=== PATIENT | male | born 1960 | race Caucasian/White ===

== ENCOUNTER 2017-05-02 10:19 | Emergency (ER) | payer SELFPAY ==
[~2017-05-02] VITALS: Ht 175.3 cm; Wt 111.1 kg
[2017-05-02 10:26] VITALS: Ht 175.3 cm; Wt 111.1 kg
[2017-05-02 12:58] VITALS: BP 134/83
== END 2017-05-02 12:58 | disposition home or self-care (01) ==
LOC: ED 10:19
DX: L02.512 Cutaneous abscess of left hand (principal); K21.9 Gastro-esophageal reflux disease without esophagitis
CPT/HCPCS: J2001

== ENCOUNTER 2017-06-08 23:01 | Emergency (ER) | payer SELFPAY ==
[~2017-06-08] VITALS: Ht 175.3 cm; Wt 112.5 kg
[2017-06-08 23:11] VITALS: Ht 175.3 cm; Wt 112.5 kg
[2017-06-09 01:49] VITALS: BP 152/78
== END 2017-06-09 01:49 | disposition home or self-care (01) ==
LOC: ED 23:01
DX: L03.113 Cellulitis of right upper limb (principal)

== ENCOUNTER 2019-03-19 14:43 | Inpatient (IN) | payer MEDICAID ==
[~2019-03-19] VITALS: Ht 175.3 cm; Wt 105.9 kg
[2019-03-19 14:53] VITALS: Ht 175.3 cm; Wt 105.9 kg
--- NOTE | 2019-03-19 14:55 | NUR ---
EKG IN PROGRESS
--- NOTE | 2019-03-19 15:36 | NUR ---
RECEIVED PT AMBULATORY FROM HOME TO ROOM 4 FOR C/O ANTERIOR CHEST WALL PAIN THAT STARTED YESTERDAY WHILE EATING-PAIN IS INTERMITTENT 4-5 [place]ARP IN SENSATION ASSOCIATED WITH SOB WITH DEEP BREATHS AND/OR MOVEMENT. RESP EVEN AND UNLABORED, ON RA AT 99 PERCENT SR ON MONITOR. PT NOTED TO BE SHAKING, REPORTS BEING DIABETEC AND TAKES 500MG OF METFORMIN DIRECTED, NO CHANGES IN MEDICATION OR FOOD. BS CHECKED 136MG/DL AT BEDSIDE AT THIS TIME. SKIN W/D/I. DENIES ANY N/V/D, DENIES FEVERS, POSITIVE CHILLS. SAFETY MEASURES IN PLACE, WILL CONT TO MONITOR.
[2019-03-19 16:52] LABS: CALCIUM 8.7 mg/dL (8.5-10.1); CARBON DIOXIDE 26.1 mmol/L (21-32); CHLORIDE SERUM 100 mmol/L (98-107); CREATININE SERUM 1.2 mg/dL (0.7-1.3); GFR1 > 60 mL/min; GLUCOSE SERUM 103 mg/dL (74-106); POTASSIUM SERUM 3.8 mmol/L (3.5-5.1); SODIUM SERUM 137 mmol/L (136-145)
[2019-03-19 16:56] LABS: BASOPHIL % 0.4 % (0-2); PLATELET COUNT 151 x10^3mcL (130-400); RED CELL DISTRIBUTION WIDTH 12.8 % (11.5-14.5)
[2019-03-19 16:57] LABS: ALBUMIN 3.9 g/dL (3.4-5.0); ALKALINE PHOSPHATASE 66 U/L (46-116); ALT/SGPT 26 U/L (16-63); AST/SGOT 23 U/L (15-37); BILIRUBIN TOTAL 0.6 mg/dL (0.20-1.00); TOTAL PROTEIN, SERUM 8.1 g/dL (6.4-8.2)
--- NOTE | 2019-03-19 17:25 | NUR ---
MEDICATED ORDERED, WILL CONT TO MONITOR.
--- NOTE | 2019-03-19 18:29 | NUR ---
PT C/O 3/10 CHEST PAIN TO STERNAL AREA. NO RESPIRATORY DISTRESS NOTED. DOCTOR MADE AWARE.
[2019-03-19] MEDS ORDERED: METFORMIN HYDR500 M1 PO ×2 (18:45→18:47)
[2019-03-19] MEDS ORDERED: PEPCID40 MG PO (18:47)
[2019-03-19] MEDS ORDERED: ASPIR LOW81 MG PO (18:48)
[2019-03-19] MEDS ORDERED: ASPIRIN ADULT L81 M5 PO (18:48)
[2019-03-19 19:00] LABS: CHOLESTEROL/HDL RATIO 4.8
[2019-03-19 19:08] LABS: FREE T4 0.85 ng/dL (0.76-1.46); FREE THYROXINE INDEX 1.1 ug/dL (1.4-4.5); T4(THYROXINE) 2.6 ug/dL (4.7-13.3)
--- NOTE | 2019-03-19 19:08 | NUR ---
REPORT GIVEN TO MIKE MENDEZ, UPDATED ON STATUS, LABS AND VITALS. PT STABLE FOR TRANSFER. TA BEDSIDE, BROUGHT HIM DINNER.
[2019-03-19 19:11] LABS: T3 TOTAL 0.52 ng/mL
--- NOTE | 2019-03-19 20:00 | NUR ---
RECEIVED PT FROM ANDREA DELUNA. PT AOX4, DENIES TEE/DIZZINESS. DENIES CP/PRESSURE AT THIS TIME. IV TO RAC, INTACT AND PATENT. BED IN LOWEST POSITION. CALL LIGHT WITHIN REACH. WILL CONTINUE TO MONITOR.
[2019-03-19 20:05] VITALS: BP 148/81
[2019-03-19 21:28] LABS: microscopic required? NO
[2019-03-19 21:38] LABS: urine erythrocyte NEGATIVE (NEGATIVE)
[2019-03-19 21:47] LABS: AMPHETAMINE QUAL UR NONE DETECTED (See below)
--- NOTE | 2019-03-19 23:25 | NUR ---
PT C/O UNCONTROLLABLE SHAKING, CHILLS AND CHEST PRESSURE. DENIES CP. VITAL SIGNS FOLLOW: BP 137/82 MAP 95, TEMP 98.8, 02 SAT 97% ON 2L NC, HR 86. DR. JOHNSON MADE AWARE.
--- NOTE | 2019-03-20 00:10 | NUR ---
late entry: 1950h - received from er, transported via [place]. awake and alert, oriented to name, place, time and situation. speech clear and appropriate. ambulated with steady gait to bed. stated sought admission due to chest pain with associated shortness of breath. denies having chest pain or shortness of breath at this time. instructed on use of call light to call for assistance, placed within easy reach. endorsed to nurse burgess.
--- NOTE | 2019-03-20 03:30 | NUR ---
PT RESTING IN BED. RR EVEN AND UNLABORED. IN NO ACUTE DISTRESS. CALL LIGHT WITHIN REACH. BED IN LOWEST POSITION. WILL CONTINUE TO MONITOR.
[2019-03-20 06:03] VITALS: BP 126/63
[2019-03-20 07:09] LABS: BASOPHIL % 0.4 % (0-2); RED CELL DISTRIBUTION WIDTH 13.1 % (11.5-14.5)
[2019-03-20 07:11] LABS: PLATELET COUNT 127 x10^3mcL (130-400)
--- NOTE | 2019-03-20 07:35 | NUR ---
RECEIVED PT RESTING IN BED. AAOX4. RESP EVEN AND UNLABORED ON 2 LPM. C/O CHEST PAIN RADIATING TO SHOULDERS, 09/23. WILL MEDICATE ORDERED. SR WITH OCCASIONAL PVC'S ON TELE #[id number] INFUSING, NO REDNESS OR SWELLING TO RAC. BED IN LOW POSITION, CALL LIGHT WITHIN REACH. WILL CONTINUE TO MONITOR.
--- NOTE | 2019-03-20 07:49 | NUR ---
PT C/O 6 CHEST PAIN RADIATING TO SHOULDERS. DR. HERMOSILLO AWARE. PT REFUSING NORCO AT THIS TIME.
[2019-03-20 08:23] VITALS: BP 133/66
[2019-03-20 09:04] LABS: CALCIUM 7.9 mg/dL (8.5-10.1); CARBON DIOXIDE 20.9 mmol/L (21-32); CHLORIDE SERUM 103 mmol/L (98-107); GFR1 > 60 mL/min; GLUCOSE SERUM 109 mg/dL (74-106); POTASSIUM SERUM 3.9 mmol/L (3.5-5.1); SODIUM SERUM 137 mmol/L (136-145)
--- NOTE | 2019-03-20 11:46 | NUR ---
PT RESTING IN BED. NO ACUTE DISTRESS. RESP EVEN AND UNLABORED ON 2 LPM. DENIES CP OR PRESSURE AT THIS TIME. IVF INFUSING, NO REDNESS OR SWELLING NOTED. CALL LIGHT WITHIN REACH. WILL CONTINUE TO MONITOR.
[2019-03-20 12:18] VITALS: BP 123/69
--- NOTE | 2019-03-20 15:30 | NUR ---
Discount pharmacy card and list to low cost medical clinics given to patient by Ed.
[2019-03-20 16:21] VITALS: BP 129/76
--- NOTE | 2019-03-20 18:36 | NUR ---
PT SITTING UP ON THE SIDE OF THE BED. NO ACUTE DISTRESS. DENIES CP OR PRESSURE. GIVEN WARM WIPES AND NEW GOWN REQUESTED. IVF INFUSING, NO REDNESS OR SWELLING TO IV SITE VISITOR AT BEDSIDE. BED IN LOW POSITION, CALL LIGHT WITHIN REACH. WILL ENDORSE TO ONCOMING SHIFT.
[2019-03-20 19:17] VITALS: BP 121/57
--- NOTE | 2019-03-20 19:20 | NUR ---
RECEIVED PT FROM PREVIOUS SHIFT NURSE. PT AOX4, C/O TEE. ON TELE #27, READING SR. DENIES CP/PRESSURE AT THIS TIME. DENIES SOB/DIFFICULTY BREATHING, ON 2L NC. IV TO RAC, INTACT AND PATENT. BED IN LOWEST POSITION. CALL LIGHT WITHIN REACH. WILL CONTINUE TO MONITOR.
--- NOTE | 2019-03-20 21:09 | NUR ---
PT C/O TEE AND IS REQUESTING TORADOL IVP. INFORMED PT THAT TORADOL IS NOT DUE BUT TYLENOL PO IS AVAILABLE. PT GIVEN TYLENOL PO PER ORDERS.
--- NOTE | 2019-03-20 22:47 | NUR ---
PT STATES HE CONTINUES TO HAVE TEE WITHOUT RELIEF. TORADOL IVP GIVEN PER ORDERS.
--- NOTE | 2019-03-20 23:30 | NUR ---
PT C/O BEING UNABLE TO BREATHE THROUGH NOSE AND FEELING CONGESTED. INFORMED DR. JOHNSON. FLONASE ORDERED AND ADMINISTERED.
--- NOTE | 2019-03-21 03:01 | NUR ---
PT C/O TEE. INFORMED DR. JOHNSON, TORADOL IVP 15MG ORDERED FOR BREAKTHROUGH PAIN. MEDICATED PER EMAR.
[2019-03-21 05:27] VITALS: BP 123/49
--- NOTE | 2019-03-21 05:50 | NUR ---
PT C/O SHAKING, ABD PAIN, SCROTAL PAIN, NAUSEA. PER PT NO DR. HAS BEEN IN TO SEE HIM FOR THE PAST [address] RAMON NOTIFIED. REQUESTED FOR DR TO COME SEE PT AND PER DR. SHE WILL SEND DR. HERMOSILLO IN 30 MIN TO SEE PT. INFORMED PT THAT DR WILL BE IN. MEDICATED PT FOR PAIN AND NAUSEA.
--- NOTE | 2019-03-21 07:30 | NUR ---
A&OX4, COOPERATES WELLA ND FOLLOWS COMMANDS. TELE #27, NSR. DENIES CHEST PAIN ECHO PENDING. PERIPHERAL PULSES PALPABLE W. NO SIGNS OF EDEMA. LUNG SOUNDS CTA BILATERALLY, ON RA. NORMOACTIVE BSX4. VOIDS WELL. SKIN IS INTACT APART FROM FIGNER AMPUTATIONS. DENIES PAIN OR DISCOMFORT AT THIS TIME. WILL CONTINUE TO MONITOR FOR CHEST PAIN AND SYMPTOMS.
[2019-03-21 07:43] VITALS: BP 119/58
[2019-03-21 12:01] VITALS: BP 110/63
[2019-03-21] MEDS ORDERED: IBUPROFEN400 MG PO (13:44)
[2019-03-21 14:10] VITALS: BP 123/49
--- NOTE | 2019-03-21 14:41 | NUR ---
PATIENT HAS RECEIVED DISCAHRGE INSTRUCTIONS. PATIENT VERBALIZED UNDERSTANDING OF INSTRUCTIONS. ALL QUESTIONS AND CONCERNS HAVE BEEN ADDRESSED. IV CATHETER IS INTACT WHEN DC. PATIENT IS WAITING FOR TO ARRIVE TO PICK HIM UP. PT DENIES PAIN OR DISCOMFORT AT THIS TIME.
--- NOTE | 2019-03-21 14:47 | NUR ---
PATIENT WAS TRANSPORTED TO [facility] VIA WHEELCHAIR FOR DISCHARGE. ALL QUESTIONS AND CONCERNS HAVE BEEN ADDRESSED.
== END 2019-03-21 14:46 | disposition home or self-care (01) | DRG 203 ==
LOC: ED 14:43 → DU 18:21
PROVIDERS: Emergency Medicine; ADMIT Internal Medicine
DX: M94.0 Chondrocostal junction syndrome [Tietze] (principal); K21.9 Gastro-esophageal reflux disease without esophagitis; Z68.34 Body mass index [BMI] 34.0-34.9, adult; Z87.891 Personal history of nicotine dependence; Z89.022 Acquired absence of left finger(s)
CPT/HCPCS: 82962; 83880; 84439; 87804; 90658; G0378; J1885; J2405; J7030

== ENCOUNTER 2020-01-30 20:15 | Emergency (ER) | payer OTHER ==
[~2020-01-30] VITALS: Ht 175.3 cm; Wt 104.5 kg
[~2020-01-30 20:15] MED LIST: ASPIR LOW81 MG PO; ASPIRIN ADULT L81 M5 PO; IBUPROFEN400 MG PO; METFORMIN HYDR500 M1 PO; PEPCID40 MG PO
[2020-01-30 20:45] VITALS: Ht 175.3 cm; Wt 104.5 kg
[2020-01-30 21:28] LABS: BASOPHIL % 0.5 % (0-2); PLATELET COUNT 216 x10^3mcL (130-400); RED CELL DISTRIBUTION WIDTH 13.3 % (11.5-14.5)
[2020-01-30 21:39] LABS: CALCIUM 9.2 mg/dL (8.5-10.1); CHLORIDE SERUM 103 mmol/L (98-107); CREATININE SERUM 0.9 mg/dL (0.7-1.3); GFR1 > 60 mL/min; GLUCOSE SERUM 122 mg/dL (74-106); POTASSIUM SERUM 3.8 mmol/L (3.5-5.1); SODIUM SERUM 140 mmol/L (136-145)
[2020-01-30 21:44] LABS: ALBUMIN 3.8 g/dL (3.4-5.0); ALKALINE PHOSPHATASE 81 U/L (46-116); ALT/SGPT 30 U/L (16-63); AST/SGOT 24 U/L (15-37); BILIRUBIN TOTAL 0.44 mg/dL (0.20-1.00); TOTAL PROTEIN, SERUM 7.9 g/dL (6.4-8.2)
[2020-01-31 01:34] VITALS: BP 113/69
== END 2020-01-31 01:34 | disposition home or self-care (01) ==
LOC: ED 20:15
DX: N23 Unspecified renal colic (principal); K21.9 Gastro-esophageal reflux disease without esophagitis; Z88.0 Allergy status to penicillin; Z87.442 Personal history of urinary calculi
CPT/HCPCS: J1885; J2270; J2405; J7030